=== PATIENT | male | born 1980 | race African-American/Black ===

== ENCOUNTER 2023-08-06 13:30 | Emergency (ER) | payer SELFPAY ==
[2023-08-06 13:53] VITALS: BP 176/97; PULSE 81; RESP 18; TEMP 98.1; BMI 32.1
== END 2023-08-06 14:49 | disposition home or self-care (01) ==
LOC: JERFT 13:30 → JER 13:30 → JERFT 14:49
DX: R68.83 Chills (without fever) (principal); M79.10 Myalgia, unspecified site; U07.1 COVID-19
CPT/HCPCS: 0241U-QW; 99283-25